=== PATIENT | male | born 1950 | race Caucasian/White ===

== ENCOUNTER 2019-02-09 10:17 | Day surgery (SDC) | payer BC ==
[2019-02-06 11:57] VITALS: BMI 24.3
[2019-02-09] MEDS ORDERED: Benzocaine 20% Spray 60 ML CAN ONE (10:56)
[2019-02-09] MEDS ORDERED: Midazolam HCl 2 mg/2 ml Vial ONE (10:57)
[2019-02-09] MEDS ORDERED: Fentanyl 100 MCG/2 ML VIAL ONE (10:57)
--- NOTE | 2019-02-11 19:49 | EKG ---
Test Reason : PREOP JAVID Blood Pressure : / mmHG Vent. Rate : 055 BPM Atrial Rate : 375 BPM P-R Int : 000 ms QRS Dur : 108 ms QT Int : 432 ms P-R-T Axes : 000 033 028 degrees QTc Int : 413 ms Atrial fibrillation with slow ventricular response with premature ventricular or aberrantly conducted complexes Abnormal ECG When compared with ECG of 29-MAY-2015 12:34, Atrial fibrillation has replaced Sinus rhythm Minimal criteria for Septal infarct are no longer Present Nonspecific T wave abnormality no longer evident in Lateral leads Confirmed by HIRAM STALEY, SBartolome ([id number]) on 02/11/2019 7:49:04 PM Referred By: HENRI Confirmed By:DR. Ethan GANDHI MD
--- NOTE | 2019-02-12 16:05 | HP ---
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 He denies any angina. No issues. PAST MEDICAL HISTORY: 1. Mitral valve prolapse, status post repair. 2. Atrial fibrillation. 3. 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 4. CAD. PAST SURGICAL HISTORY: Mitral valve repair with a HARRELL to the LAD and left atrial appendage ligation. MEDICATIONS: Unchanged from previous note. SOCIAL HISTORY: Unchanged from previous note. FAMILY HISTORY: Unchanged from previous note. PHYSICAL EXAMINATION: VITAL SIGNS: Temperature 98.2, pulse 72, respiratory rate 18, saturation is 98% on room air, and blood pressure 122/68. GENERAL: Awake, alert, and oriented x3. No distress. HEENT: Normocephalic, atraumatic. NECK: Supple. LUNGS: Clear. CARDIOVASCULAR: S1 and S2. No S3 or S4. No murmurs. No rubs. ABDOMEN: Soft. Positive bowel sounds. EXTREMITIES: No edema. SKIN: Warm and dry. ASSESSMENT: 1. Atrial fibrillation. 2. Cerebrovascular accident. 3. Status post left atrial appendage ligation. PLAN: Proceed with JAVID for evaluation of left atrial appendage, make sure that is completely ligated from surgery. If it is, we will plan on stopping the Eliquis as he is protected from full anticoagulation with ligation. Job ID: [id number]
--- NOTE | 2019-02-12 16:30 | ECHO ---
DATE OF SERVICE: 02/09/19 After several sprays of topical Bupivacaine were given to the back of throat and no anesthesia was gi kei, we carefully inserted the transesophageal probe was inserted into the mouth and into the esophag us without problems. Multiplanar views were obtained. Left ventricle appears to be normal size. Normal wall thickness. Systolic function is normal. Estima cong EF at 60-65%. Left atrium is mildly dilated. Right atrium is normal size. The right ventricle is normal size. Aortic valve is sclerotic but opens well. There is mild to moderate aortic valve insufficiency. Mitral valve is repaired. There is mild to moderate mitral insufficiency. No stenosis. Tricuspid valve is structurally normal. There is mild TR. Pulmonary valve is structurally normal. There is mild PI. Left atrial appendage seems to be completely ligated with no inflow or outflow. 3D images show a smal l spot where the left atrial appendage was in the past with absolutely no flow of blood in or out of it. CONCLUSIONS: 1. Normal systolic function, EF at 60-65%. 2. Left atrial enlargement. 3. Aortic valve sclerosis with mild to moderate AI. 4. Mitral valve repair with mild to moderate insufficiency. No stenosis. 5. Left atrial appendage is completely occluded. PLAN: May stop Khalida.
== END 2019-02-09 12:05 | disposition home or self-care (01) ==
LOC: CCL 10:17
PROVIDERS: ATTEND Internal Medicine Cardiovascular Disease
PROC: B24BZZ4 Ultrasonography of Heart with Aorta, Transesophageal (ICD-10-PCS; principal; 2019-02-09)
DX: I48.0 Paroxysmal atrial fibrillation (principal); I35.8 Other nonrheumatic aortic valve disorders; I34.1 Nonrheumatic mitral (valve) prolapse; I25.10 Atherosclerotic heart disease of native coronary artery without angina pectoris; Z86.73 Personal history of transient ischemic attack (TIA), and cerebral infarction without residual deficits; Z79.01 Long term (current) use of anticoagulants; Z79.82 Long term (current) use of aspirin; Z79.899 Other long term (current) drug therapy; Z95.1 Presence of aortocoronary bypass graft; Z98.890 Other specified postprocedural states
CPT/HCPCS: 93005; 93010; 93312; J2250; J3010

== ENCOUNTER 2024-05-19 08:14 | Outpatient (CLI) | payer MEDICARE ==
[2024-05-19] MEDS ORDERED: Iopamidol 370 76% 100 ML VIAL ONE (15:12)
== END 2024-05-19 08:15 | disposition home or self-care (01) ==
LOC: CT 08:14
PROVIDERS: ATTEND Internal Medicine Hematology & Oncology
DX: C25.3 Malignant neoplasm of pancreatic duct (principal); R18.8 Other ascites
CPT/HCPCS: 71260; 74177; J1642

== ENCOUNTER 2025-02-11 13:26 | Day surgery (SDC) | payer MEDICARE ==
[2025-02-11 13:44] LABS: #Basophils 0.05 10x3/uL (0.0-0.2); #Eosinophils Less than 0.03 10x3/uL (0.0-0.7); #Monocytes 0.70 10x3/uL (0.11-0.59); #Neutrophils 10.18 10x3/uL (1.40-6.50); %Basophils 0.4 % (0.0-1.0); %Eosinophils 0.2 % (0.0-10.0); %Lymphocytes 5.2 % (21.0-51.0); %Monocytes 6.0 % (0.0-10.0); %Neutrophils 87.3 % (42.0-75.0); Hematocrit 36.1 % (42.0-52.0); Hemoglobin 11.3 g/dL (14.0-18.0); Mean Corpuscular Hemoglobin 29.6 pg (27.0-31.0); Mean Corpuscular Volume 94.5 fL (78.0-98.0); Platelet Count 96 10x3/uL (130-400); Red Blood Cell (RBC) Count 3.82 mill/uL (4.70-6.10); White Blood Cell (WBC) Count 11.66 10x3/uL (4.8-10.8)
[2025-02-11 13:59] LABS: INR-International Normal Ratio 1.1; PTT 37.7 sec (22.9-36.1); Prothrombin Time 14.3 sec (12.0-14.7)
[2025-02-11] MEDS ORDERED: Lidocaine 1% PF 5 ML VIAL ONE (14:49)
[2025-02-11] MEDS ORDERED: Sodium Bicarbonate 2.5 MEQ/5 ML SDV ONE (14:49)
[2025-02-11] MEDS ORDERED: Lidocaine 1% w/Epinephrine 1:100K 20 ML VIAL ONE (14:49)
== END 2025-02-11 16:10 | disposition home or self-care (01) ==
LOC: ULT 13:26
PROVIDERS: ATTEND Internal Medicine Hematology & Oncology
PROC: 0W9G3ZZ Drainage of Peritoneal Cavity, Percutaneous Approach (ICD-10-PCS; principal; 2025-02-11)
DX: R18.8 Other ascites (principal); C25.3 Malignant neoplasm of pancreatic duct; D50.0 Iron deficiency anemia secondary to blood loss (chronic); D70.8 Other neutropenia; E11.9 Type 2 diabetes mellitus without complications; I25.10 Atherosclerotic heart disease of native coronary artery without angina pectoris; Z96.659 Presence of unspecified artificial knee joint; Z98.890 Other specified postprocedural states; Z88.8 Allergy status to other drugs, medicaments and biological substances; Z79.4 Long term (current) use of insulin; Z79.899 Other long term (current) drug therapy
CPT/HCPCS: 49083; 85025; 85610; 85730; P9047; 36415; 88112; 88305

== ENCOUNTER 2025-02-15 12:33 | Outpatient (CLI) | payer MEDICARE ==
[~2025-02-15 12:33] MED LIST: Iopamidol 370 76% 100 ML VIAL ONE
== END 2025-02-15 12:34 | disposition home or self-care (01) ==
LOC: CT 12:33
PROVIDERS: ATTEND Internal Medicine Hematology & Oncology
DX: C25.3 Malignant neoplasm of pancreatic duct (principal); D50.0 Iron deficiency anemia secondary to blood loss (chronic); D70.8 Other neutropenia; R18.8 Other ascites; C78.6 Secondary malignant neoplasm of retroperitoneum and peritoneum; K86.89 Other specified diseases of pancreas; R91.1 Solitary pulmonary nodule; I51.7 Cardiomegaly; I25.10 Atherosclerotic heart disease of native coronary artery without angina pectoris; K76.89 Other specified diseases of liver; N28.89 Other specified disorders of kidney and ureter; I70.90 Unspecified atherosclerosis; M47.819 Spondylosis without myelopathy or radiculopathy, site unspecified; S22.089D Unspecified fracture of T11-T12 vertebra, subsequent encounter for fracture with routine healing; R16.1 Splenomegaly, not elsewhere classified; Z95.1 Presence of aortocoronary bypass graft; Z93.3 Colostomy status
CPT/HCPCS: 71260; 74177; Q9967

== ENCOUNTER 2025-03-10 12:37 | Day surgery (SDC) | payer MEDICARE ==
[2025-03-10] MEDS ORDERED: Lidocaine 1% PF 5 ML VIAL ONE (12:43)
[2025-03-10] MEDS ORDERED: Sodium Bicarbonate 2.5 MEQ/5 ML SDV ONE (12:44)
== END 2025-03-10 14:30 | disposition home or self-care (01) ==
LOC: ULT 12:37
PROVIDERS: ATTEND Internal Medicine Hematology & Oncology
PROC: 0W9G3ZZ Drainage of Peritoneal Cavity, Percutaneous Approach (ICD-10-PCS; principal; 2025-03-10)
DX: R18.8 Other ascites (principal); C25.3 Malignant neoplasm of pancreatic duct; D50.0 Iron deficiency anemia secondary to blood loss (chronic); D70.8 Other neutropenia; Z88.8 Allergy status to other drugs, medicaments and biological substances
CPT/HCPCS: 49083

== ENCOUNTER 2025-03-26 08:13 | Day surgery (SDC) | payer MEDICARE ==
[2025-03-26] MEDS ORDERED: Lidocaine 1% PF 5 ML VIAL ONE (08:23)
[2025-03-26] MEDS ORDERED: Sodium Bicarbonate 2.5 MEQ/5 ML SDV ONE (08:23)
[2025-03-26 08:30] LABS: Hematocrit 39.6 % (42.0-52.0); Hemoglobin 12.4 g/dL (14.0-18.0); Mean Corpuscular Hemoglobin 29.6 pg (27.0-31.0); Mean Corpuscular Volume 94.5 fL (78.0-98.0); Platelet Count 67 10x3/uL (130-400); Red Blood Cell (RBC) Count 4.19 mill/uL (4.70-6.10); White Blood Cell (WBC) Count 36.52 10x3/uL (4.8-10.8)
[2025-03-26 08:35] LABS: INR-International Normal Ratio 1.1; Prothrombin Time 14.0 sec (12.0-14.7)
[2025-03-26 08:36] LABS: PTT 33.1 sec (22.9-36.1)
[2025-03-26 08:53] LABS: Anisocytosis SLIGHT = 6-15 cells HPF (0-5); Platelet Adequacy Comment Platelets Decreased; Poikilocytosis SLIGHT = 6-15 cells HPF (0-5)
== END 2025-03-26 10:10 | disposition home or self-care (01) ==
LOC: ULT 08:13
PROVIDERS: ATTEND Internal Medicine Hematology & Oncology
DX: C25.3 Malignant neoplasm of pancreatic duct (principal); D50.0 Iron deficiency anemia secondary to blood loss (chronic); D70.8 Other neutropenia; R18.8 Other ascites; E11.9 Type 2 diabetes mellitus without complications; I25.10 Atherosclerotic heart disease of native coronary artery without angina pectoris; I48.91 Unspecified atrial fibrillation
CPT/HCPCS: 36415; 49083; 85025; 85610; 85730

== ENCOUNTER 2025-04-16 07:43 | Day surgery (SDC) | payer MEDICARE ==
[2025-04-16] MEDS ORDERED: Lidocaine 1% PF 5 ML VIAL ONE (08:11)
[2025-04-16] MEDS ORDERED: Sodium Bicarbonate 2.5 MEQ/5 ML SDV ONE (08:12)
[2025-04-16 10:03] VITALS: BP 143/71; TEMP 98.1
== END 2025-04-16 10:00 | disposition home or self-care (01) ==
LOC: ULT 07:43
PROVIDERS: ATTEND Internal Medicine Hematology & Oncology
PROC: 0W9G30Z Drainage of Peritoneal Cavity with Drainage Device, Percutaneous Approach (ICD-10-PCS; principal; 2025-04-16)
DX: R18.8 Other ascites (principal); C25.3 Malignant neoplasm of pancreatic duct; D50.0 Iron deficiency anemia secondary to blood loss (chronic); D70.8 Other neutropenia; E11.9 Type 2 diabetes mellitus without complications; I25.10 Atherosclerotic heart disease of native coronary artery without angina pectoris; I48.91 Unspecified atrial fibrillation; Z98.890 Other specified postprocedural states; Z96.649 Presence of unspecified artificial hip joint; Z79.4 Long term (current) use of insulin
CPT/HCPCS: 49083

== ENCOUNTER 2025-04-30 07:49 | Day surgery (SDC) | payer MEDICARE ==
[2025-04-30 08:46] LABS: Hematocrit 31.8 % (42.0-52.0); Hemoglobin 10.0 g/dL (14.0-18.0); Mean Corpuscular Hemoglobin 29.8 pg (27.0-31.0); Mean Corpuscular Volume 94.6 fL (78.0-98.0); Platelet Count 35 10x3/uL (130-400); Red Blood Cell (RBC) Count 3.36 mill/uL (4.70-6.10); White Blood Cell (WBC) Count 6.34 10x3/uL (4.8-10.8)
[2025-04-30] MEDS ORDERED: Sodium Bicarbonate 2.5 MEQ/5 ML SDV ONE (08:54)
[2025-04-30] MEDS ORDERED: Lidocaine 1% w/Epinephrine 1:100K 20 ML VIAL ONE (08:54)
[2025-04-30 08:56] LABS: INR-International Normal Ratio 1.2; Prothrombin Time 15.4 sec (12.0-14.7)
[2025-04-30 08:57] LABS: PTT 38.6 sec (22.9-36.1)
[2025-04-30 09:44] LABS: Anisocytosis SLIGHT = 6-15 cells HPF (0-5); Burr Cells MODERATE= 6-15 cells HPF (0-1); Macrocytosis SLIGHT = 6-15 cells HPF (0-5); Platelet Adequacy Comment Platelets Decreased; Poikilocytosis SLIGHT = 6-15 cells HPF (0-5); Polychromasia SLIGHT = 2-3 cells HPF (0-2); Schistocytes SLIGHT = 2-5 cells HPF (0-1); Smudge Cells 3.9 %
== END 2025-04-30 10:00 | disposition home or self-care (01) ==
LOC: ULT 07:49
PROVIDERS: ATTEND Internal Medicine Hematology & Oncology
PROC: 0W9G3ZZ Drainage of Peritoneal Cavity, Percutaneous Approach (ICD-10-PCS; principal; 2025-04-30)
DX: R18.8 Other ascites (principal); C25.3 Malignant neoplasm of pancreatic duct; D50.0 Iron deficiency anemia secondary to blood loss (chronic); D70.8 Other neutropenia; E11.9 Type 2 diabetes mellitus without complications; I25.10 Atherosclerotic heart disease of native coronary artery without angina pectoris; Z96.649 Presence of unspecified artificial hip joint; Z98.890 Other specified postprocedural states; Z79.4 Long term (current) use of insulin
CPT/HCPCS: 49083; 85025; 85610; 85730